=== PATIENT | female | born 1955 | race American Indian/Alaskan Native ===

== ENCOUNTER 2016-09-08 13:28 | Outpatient (CLI) | payer OTHER ==
--- NOTE | 2016-09-09 08:40 | Mammography Report ---
Bilateral mammogram: Compared to 08/27/15. CAD study utilized. Findings: No evidence of adipose tissue bilaterally. No mass or microcalcification. New calcification upper outer left breast. Benign calcification lower posterior left breast. No mass. Normal axilla. Impression: New calcification left breast. Spot magnification recommended. BI-RADS CATEGORY: 0 = Needs additional imaging evaluation ACR BI-RADS MAMMOGRAPHIC CODES: 0 = Needs additional imaging evaluation; 1 = Negative; 2 = Benign; 3 = Probably benign; 4 = Suspicious; 5 = Malignant; 6 = Known biopsy-proven malignancy COMMENT: 1. Dense breast tissue, i.e., adenosis, fibrocystic changes, etc., may obscure an underlying neoplasm. 2. Approximately 10% of cancers are not detected with mammography. 3. A negative mammography report should not delay biopsy if a clinically suspicious mass is present. COMMENT: Patient follow-up letters are generated in [employer].
== END 2016-09-08 13:29 | disposition home or self-care (01) ==
LOC: SPVWC 13:28
PROVIDERS: ATTEND Obstetrics & Gynecology Gynecology
DX: Z12.31 Encounter for screening mammogram for malignant neoplasm of breast (principal)
CPT/HCPCS: 77067; G0202

== ENCOUNTER 2016-10-06 13:22 | Outpatient (CLI) | payer OTHER ==
--- NOTE | 2016-10-06 14:17 | Mammography Report ---
LEFT DIGITAL DIAGNOSTIC MAMMOGRAM : 10/06/16 13:22:00 CLINICAL: Recall for calcifications. COMPARISON:09/08/16 FINDINGS: ML and CC magnification views demonstrate a tiny cluster of upper outer calcifications with benign morphology. No more than three calcifications in the cluster. No associated mass or architectural distortion. IMPRESSION: Benign calcifications. BI-RADS CATEGORY: 2 - - Benign RECOMMENDATION: Routine mammographic screening in one year. ACR BI-RADS MAMMOGRAPHIC CODES: 0 = Needs additional imaging evaluation; 1 = Negative; 2 = Benign; 3 = Probably benign; 4 = Suspicious; 5 = Malignant; 6 = Known biopsy-proven malignancy COMMENT: 1. Dense breast tissue, i.e., adenosis, fibrocystic changes, etc., may obscure an underlying neoplasm. 2. Approximately 10% of cancers are not detected with mammography. 3. A negative mammography report should not delay biopsy if a clinically suspicious mass is present. COMMENT: Patient follow-up letters are generated by our [employer] application.
== END 2016-10-06 13:23 | disposition home or self-care (01) ==
LOC: SPVWC 13:22
PROVIDERS: ATTEND Obstetrics & Gynecology Gynecology
DX: R92.1 Mammographic calcification found on diagnostic imaging of breast (principal)
CPT/HCPCS: G0206-LT